=== PATIENT | female | born 1950 | race Caucasian/White ===

== ENCOUNTER 2020-12-04 06:11 | Day surgery (SDC) | payer MEDICARE, OTHER ==
[~2020-12-04] VITALS: Ht 162.6 cm; Wt 97.1 kg
[~2020-12-04 06:11] MED LIST: BUPR100 PO; EUTHYROX50 MCG PO; GABA300 PO; LISI20 PO; Lisinopril-Hct1 EAC4 PO; MELO7.5 PO; META800 PO; NYSTRIT TOP; Ropinirole HCl0.5 MG PO
--- NOTE | 2020-12-04 07:13 | NUR ---
Ambulatory in Day Surgery Surgical site prepped with 2% Chlorhexidine cloth wipe. Kayce Paws warming gown applied. History, Chart, Medications and Allergies reviewed before start of procedurE. Lungs clear T/O to Auscultation. Patient confirms NPO status and agrees with scheduled surgery. Pre-Op teaching done. Pt verbalizes understanding. Patient States Post-Procedure ride home has been arranged. Patient reports completing Chlorhexadine shower X2 prior to admission to hospital.Lungs clear T/O to Auscultation.
--- NOTE | 2020-12-04 13:44 | NUR ---
PT WORKING WITH THERAPY.
--- NOTE | 2020-12-04 16:52 | NUR ---
OTHER RN GIVEN REPORT SHE IS TAKING OVER CARE AT THIS TIME.
--- NOTE | 2020-12-04 17:01 | NUR ---
CARE ASSUMED OF PT AT APPROXIMATELY 1645. PT IS ALERT AND ORIENTED, DENIES PAIN. WILL MONITOR UNTIL REPORT TO ONCOMING RN.
[2020-12-05 04:18] LABS: BASOPHILS ABSOLUTE AUTO 0.05 K/mm3 (0.00-0.23); BASOPHILS PERCENT AUTO 1 % (0-2); EOSINOPHILS ABSOLUTE AUTO 0.21 K/mm3 (0.00-0.68); EOSINOPHILS PERCENT AUTO 3 % (0-6); Hematocrit 36.1 % (33.0-51.0); Hemoglobin 11.3 g/dL (11.5-16.0); IMMATURE GRAN ABSOLUTE AUTO 0.02 K/mm3 (0.00-0.10); IMMATURE GRAN PERCENT AUTO 0 % (0-1); LYMPHOCYTES ABSOLUTE AUTO 1.29 K/mm3 (0.84-5.20); LYMPHOCYTES PERCENT AUTO 15 % (21-46); MONOCYTES ABSOLUTE AUTO 0.91 K/mm3 (0.16-1.47); MONOCYTES PERCENT AUTO 11 % (4-13); Mean Corpuscular HGB 30.1 pg (26.0-34.0); Mean Corpuscular HGB Conc 31.3 g/dL (31.5-36.5); Mean Corpuscular Volume 96 fL (80-100); Mean Platelet Volume 11.6 fL (9.1-12.4); NEUTROPHILS PERCENT AUTO 70 % (41-73); Platelet Count 205 K/mm3 (150-400); RDW Coefficient Variation 12.9 % (11.7-14.2); RDW Standard Deviation 45.5 fL (35.1-46.3); Red Blood Cell Count 3.76 M/mm3 (3.80-5.20); White Blood Cell Count 8.38 K/mm3 (4.00-11.30)
[2020-12-05 04:33] LABS: Anion Gap 2 mmol/L (6-16); Blood Urea Nitrogen 20 mg/dL (8-24); Bun/Creatinine Ratio 25.4 (12.0-20.0); CO2, Blood 32 mmol/L (21-32); Calcium, Blood 8.2 mg/dL (8.5-10.1); Chloride, Blood 107 mmol/L (98-108); Creatinine, Blood 0.79 mg/dL (0.40-1.00); Glomerular Filtration Rate >60 (60-); Glucose, Blood 103 mg/dL (70-99); Potassium, Blood 4.3 mmol/L (3.5-5.5); Sodium, Blood 141 mmol/L (136-145)
--- NOTE | 2020-12-05 04:38 | NUR ---
SHIFT SUMMARY NO ACUTE CHANGES THIS SHIFT, NO C/O ANY KIND, SLEPT T/O THE NIGHT, AMBULATES INDEP W/ST BY ASSIST & FWW, SLEEPING AT THIS TIME, CALL LIGHT IN REACH, WILL CONT TO MONITOR UNTIL REPORT GIVEN TO DAY RN.
[2020-12-05] MEDS ORDERED: Aspir 8181 MG PO (08:14)
--- NOTE | 2020-12-05 09:00 | NUR ---
DR KAY BEEN HERE TO SEE PT.
--- NOTE | 2020-12-05 10:33 | NUR ---
PT WORKING WITH THERAPY.
[2020-12-05] MEDS ORDERED: Percocet 5-3251 EACH PO (10:36)
--- NOTE | 2020-12-05 12:47 | NUR ---
DISCHARGE: PT EATING AND DRINKING, VOIDING, PASSING GAS. PT PAIN CONTROLLED ON PO PAIN MEDICATION. PT/FAMILY REPORTS UNDERSTANDING OF DISCHARGE INSTRUCTIONS. PT CLEARED THERAPY TO GO HOME. PT SENT WITH DRESSING SUPPLIES, SCRIPT AND PAPERWORK. PT REPORTS WILL BE GETTING WALKER FROM MEDICAL STORE ON THE WAY HOME. PT ALSO SENT WITH ICE MACHINE.
== END 2020-12-05 12:59 | disposition home or self-care (01) ==
LOC: ORSCMMR 06:11 → ORD 07:30 → ORSCMMR 07:30 → SURS 10:15 → ORSCMMR 12-05 12:59
PROVIDERS: Orthopaedic Surgery
PROC: 0SRC0J9 Replacement of Right Knee Joint with Synthetic Substitute, Cemented, Open Approach (ICD-10-PCS; principal; 2020-12-04 07:30)
DX: M17.11 Unilateral primary osteoarthritis, right knee (principal); Z23 Encounter for immunization; I10 Essential (primary) hypertension; G47.33 Obstructive sleep apnea (adult) (pediatric); E03.9 Hypothyroidism, unspecified; Z79.899 Other long term (current) drug therapy; E66.01 Morbid (severe) obesity due to excess calories; Z68.36 Body mass index [BMI] 36.0-36.9, adult
CPT/HCPCS: 36415; 73560-RT; 80048; 85025; 88300; 97110; 97110-CQ; 97116; 97116-CQ; 97162; 97530; 97530-CQ; A9270; C1713; C1776; G0008; J0171; J0690; J0735; J1885; J2250; J2405; J2704; J2795; J3010; J7120; Q2038

== ENCOUNTER 2021-02-05 06:45 | Day surgery (SDC) | payer MEDICARE, OTHER ==
[~2021-02-05] VITALS: Ht 161 cm; Wt 99.1 kg
[~2021-02-05 06:45] MED LIST changes: +Aspir 8181 MG PO; +Percocet 5-3251 EACH PO
--- NOTE | 2021-02-05 08:55 | NUR ---
History, Chart, Medications and Allergies reviewed before start of procedure.Patient confirms NPO status and agrees with scheduled surgery. Patient reports completing Chlorhexadine shower X2 prior to admission to hospital.Surgical site prepped with 2% Chlorhexidine cloth wipe.
--- NOTE | 2021-02-05 18:10 | NUR ---
SHIFT SUMMARY PT HAS DONE WELL POST OP. UP TO CHAIR x 2. SEVERAL TRIPS TO BATHROOM TO VOID. PAIN WELL MANAGED W/ NO NARCOTICS.
[2021-02-06 05:54] LABS: BASOPHILS ABSOLUTE AUTO 0.03 K/mm3 (0.00-0.23); BASOPHILS PERCENT AUTO 0 % (0-2); EOSINOPHILS ABSOLUTE AUTO 0.07 K/mm3 (0.00-0.68); EOSINOPHILS PERCENT AUTO 1 % (0-6); Hematocrit 32.7 % (33.0-51.0); Hemoglobin 10.8 g/dL (11.5-16.0); IMMATURE GRAN ABSOLUTE AUTO 0.02 K/mm3 (0.00-0.10); IMMATURE GRAN PERCENT AUTO 0 % (0-1); LYMPHOCYTES ABSOLUTE AUTO 1.47 K/mm3 (0.84-5.20); LYMPHOCYTES PERCENT AUTO 15 % (21-46); MONOCYTES PERCENT AUTO 11 % (4-13); Mean Corpuscular HGB 31.2 pg (26.0-34.0); Mean Corpuscular Volume 95 fL (80-100); Mean Platelet Volume 11.6 fL (9.1-12.4); NEUTROPHILS ABSOLUTE AUTO 6.93 K/mm3 (1.96-9.15); NEUTROPHILS PERCENT AUTO 73 % (41-73); Platelet Count 194 K/mm3 (150-400); RDW Standard Deviation 48.1 fL (35.1-46.3); Red Blood Cell Count 3.46 M/mm3 (3.80-5.20); White Blood Cell Count 9.52 K/mm3 (4.00-11.30)
[2021-02-06 06:12] LABS: Anion Gap 6 mmol/L (6-16); Blood Urea Nitrogen 20 mg/dL (8-24); Bun/Creatinine Ratio 23.1 (12.0-20.0); CO2, Blood 30 mmol/L (21-32); Calcium, Blood 8.4 mg/dL (8.5-10.1); Chloride, Blood 104 mmol/L (98-108); Creatinine, Blood 0.87 mg/dL (0.40-1.00); Glomerular Filtration Rate >60 (60-); Glucose, Blood 102 mg/dL (70-99); Sodium, Blood 140 mmol/L (136-145)
[2021-02-06] MEDS ORDERED: IBUP800 PO (09:57)
--- NOTE | 2021-02-06 11:36 | NUR ---
DISCHARGE PT CLEARED THERAPY. PAIN WELL CONTROLLED. EATING, DRINKING, & VOIDING WELL. SCRIPTS, DRSGS, & POLAR PACK SENT. ESCORTED OUT VIA W/C.
== END 2021-02-06 11:31 | disposition home or self-care (01) ==
LOC: ORSCMMR 06:45 → ORD 08:15 → ORSCMMR 11:00 → SURS 11:40 → ORSCMMR 02-06 11:31 → ORD 02-12 11:00
PROVIDERS: Orthopaedic Surgery
PROC: 0SRD0JA Replacement of Left Knee Joint with Synthetic Substitute, Uncemented, Open Approach (ICD-10-PCS; principal; 2021-02-05 08:15)
PROC: 8E0Y0CZ Robotic Assisted Procedure of Lower Extremity, Open Approach (ICD-10-PCS; principal; 2021-02-05 08:15)
DX: M17.12 Unilateral primary osteoarthritis, left knee (principal); I10 Essential (primary) hypertension; E03.9 Hypothyroidism, unspecified; M79.7 Fibromyalgia; Z79.899 Other long term (current) drug therapy
CPT/HCPCS: 27447; S2900; 36415; 73560-LT; 80048; 85025; 88300; 97110; 97110-CQ; 97116; 97116-CQ; 97162; 97530-CQ; A9270; C1776; J0171; J0690; J0735; J1100; J1885; J2250; J2370; J2405; J2704; J2795; J3010; J7120

== ENCOUNTER 2021-02-19 09:32 | Emergency (ER) | payer MEDICARE, OTHER ==
[~2021-02-19] VITALS: Ht 160 cm; Wt 98.0 kg
[~2021-02-19 09:32] MED LIST changes: +IBUP800 PO
== END 2021-02-19 11:10 | disposition home or self-care (01) ==
LOC: ER 09:32
DX: L76.82 Other postprocedural complications of skin and subcutaneous tissue (principal); M79.89 Other specified soft tissue disorders; I10 Essential (primary) hypertension; M79.605 Pain in left leg; Z88.0 Allergy status to penicillin; Z88.5 Allergy status to narcotic agent; Z79.82 Long term (current) use of aspirin; Z79.899 Other long term (current) drug therapy; Y83.8 Other surgical procedures as the cause of abnormal reaction of the patient, or of later complication, without mention of misadventure at the time of the procedure; Y79.8 Miscellaneous orthopedic devices associated with adverse incidents, not elsewhere classified
CPT/HCPCS: 36415; 93971; 99283-25

== ENCOUNTER → 2023-03-11 | Outpatient (CLI) | payer MEDICARE, OTHER ==
[~2023-03-11] MED LIST changes: +Budeprion Xl300 MG PO; +HYDR1TAB94 PO; +MOBIC15 MG PO; +NYSTATIN-TRIAMC15 GM
== END | disposition home or self-care (01) ==
LOC: LAB SHORT 13:04 → LAB 13:04
DX: R31.9 Hematuria, unspecified (principal)
CPT/HCPCS: 87086

== ENCOUNTER → 2023-03-16 | Outpatient (CLI) | payer MEDICARE, OTHER | END | disposition home or self-care (01) | LOC: LAB 16:24 → LAB SHORT 16:24 | DX: R31.29 Other microscopic hematuria (principal) | CPT/HCPCS: 87086 ==

== ENCOUNTER → 2023-04-16 | Outpatient (CLI) | payer MEDICARE, OTHER ==
[2023-04-21 01:09] LABS: DOPAMINE, URINE 88 ug/L (Undefined)
[2023-04-21 09:12] LABS: METANEPHRINE, UR 94 ug/L (Undefined)
== END | disposition home or self-care (01) ==
LOC: LAB SHORT 06:30 → LAB 06:30
PROVIDERS: Family Medicine
DX: I10 Essential (primary) hypertension (principal)
CPT/HCPCS: 81050; 82384; 82530; 83835

== ENCOUNTER 2023-07-28 06:48 | Day surgery (SDC) | payer MEDICARE, OTHER ==
[2023-07-28] VITALS (7 sets, daily range): BP systolic 115–149; BP diastolic 43–111
[~2023-07-28] VITALS: Ht 160 cm; Wt 101.6 kg
[~2023-07-28 06:48] MED LIST changes: +AMLO5 PO; +BUPR150ER PO; -Budeprion Xl300 MG PO; +Crestor40 MG PO; +FAMO20 PO
[2023-07-28] MEDS ORDERED: ALBU2.5V5 INH (07:29)
[2023-07-28] MEDS ORDERED: ALBU90OI INH (07:30)
[2023-07-28] MEDS ORDERED: PREG75 PO (07:31)
[2023-07-28] MEDS ORDERED: HYDCHL25 PO (07:32)
[2023-07-28] MEDS ORDERED: LOSA25 PO (07:33)
[2023-07-28] MEDS ORDERED: SERT25 PO (07:34)
--- NOTE | 2023-07-28 11:21 | NUR ---
PT AMBULATES TO RESTROOM AND BACK WITHOUT DIFF. R FEMORAL SITE REMAINS CLEAR,. NO BLEEDING OR HEMATOMA NOTED. VSS. NADN. PT VERBALIZES UNDERSTANDING WRITTEN AND VERBAL INSTRUCTIONS. PT IV DC'D. CATH INTACT. PRESSURE DSG IN PLACE. PT DC TO HOME VIA S/O BY WC.
== END 2023-07-28 11:25 | disposition home or self-care (01) ==
LOC: MHTC 06:48
DX: I70.1 Atherosclerosis of renal artery (principal); I10 Essential (primary) hypertension; G89.29 Other chronic pain; M54.9 Dorsalgia, unspecified; F32.9 Major depressive disorder, single episode, unspecified; Z88.5 Allergy status to narcotic agent; Z88.0 Allergy status to penicillin; Z96.653 Presence of artificial knee joint, bilateral
CPT/HCPCS: 36252; 37236; 76937; 99152; 99153; C1760; C1769; C1876; C1887; C1894; J1644; J2250; J3010; J7030; J7040; J7050; Q9967

== ENCOUNTER → 2023-12-07 | Outpatient (CLI) | payer OTHER ==
[~2023-12-07] MED LIST changes: +ALBU2.5V5 INH; +ALBU90OI INH; +HYDCHL25 PO; +LOSA25 PO; +PREG75 PO; +SERT25 PO
[2023-12-07 17:41] LABS: Source, Urine Voided
[2023-12-07 19:14] LABS: Amorphous Light (0-Heavy); Bacteria Few /hpf; Hyaline Casts 0-2 /lpf (0-2); Red Blood Cells, Urine 0-2 /hpf (0-2); Squamous Epithelial Cells Few /hpf (Few); Transitional Epithelial Cells Rare /hpf (0-Rare); White Blood Cells, Urine 0-2 /hpf (0-5)
== END | disposition home or self-care (01) ==
LOC: LAB SHORT 17:38 → LAB 17:38
PROVIDERS: Family Medicine
DX: R82.998 Other abnormal findings in urine (principal)
CPT/HCPCS: 81015; 87086